=== PATIENT | male | born 1975 | race African-American/Black ===

== ENCOUNTER 2016-08-30 08:58 | Inpatient (IN) | payer MEDICAID, OTHER ==
[~2016-08-30] VITALS: Ht 157.5 cm; Wt 129.0 kg
[~2016-08-30 08:58] MED LIST: ALBU0.084; CYCL5TAB; HYDR-2601; IBUP800T24; NAPR-607
[2016-08-30 10:40] LABS: Basophils # (auto) 0 uL; Basophils % (auto) 0.2 % (0.0-2.0); Eosinophils # (auto) 0.2 uL; Eosinophils % (auto) 1.9 % (0.0-7.0); Hematocrit 45.6 % (41.0-53.0); Hemoglobin 14.4 g/dL (13.5-17.5); Lymphocytes # (auto) 1.5 uL; Lymphocytes % (auto) 14.6 % (10.0-50.0); Mean Corpuscular Hemoglobin 28.1 pg (28.0-32.0); Mean Corpuscular Hgb Conc. 31.7 g/dL (32.0-36.0); Mean Corpuscular Volume 88.7 fL (80.0-100.0); Mean Platelet Volume 7.3 fL (7.4-10.4); Monocytes % (auto) 9.9 % (0.0-12.0); Neutrophils # (auto) 7.3 uL; Neutrophils % (auto) 73.4 % (37.0-80.0); Platelet Count (auto) 269 10^3/uL (140-450); Red Cell Distribution Width 12.3 % (11.6-16.0)
[2016-08-30] MEDS ORDERED: SODIUM CHLORIDE 0.9% 1,000 ML IVB ONE (10:41)
[2016-08-30 10:55] LABS: BUN/Creatinine Ratio 11.4; Calcium 9.1 mg/dL (8.5-10.1); Potassium 4.2 mmol/L (3.5-5.1)
[2016-08-30 11:03] LABS: Urine Bilirubin Negative (Negative); Urine Blood 2+ /uL (Negative); Urine Color Yellow (Yellow); Urine Glucose Normal (Normal); Urine Ketone Negative (Negative); Urine Nitrite Negative (Negative); Urine RBC 16 /hpf (0 - 3); Urine Sperm PRESENT /hpf (None Seen); Urine Urobilinogen Normal (Negative)
[2016-08-30] MEDS ORDERED: PROMETHAZINE HCL 25 MG/ML 1ML IV ONE (13:45)
[2016-08-30] MEDS ORDERED: NALBUPHINE HCL 10 MG/1ml INJECTION IV ONE (13:45)
[2016-08-30] MEDS ORDERED: cefTRIAXone 1GM/50ML D5W 50 ML IV ONE ×2 (13:45→14:00)
[2016-08-30] MEDS ORDERED: PROMETHAZINE HCL 25 MG/ML 1ML IV PRN (14:00)
[2016-08-30] MEDS ORDERED: TEMAZEPAM 15 MG CAP PO PRN (14:00)
[2016-08-30] MEDS ORDERED: ACETAMINOPHEN 500 MG TAB PO PRN (14:00)
[2016-08-30] MEDS ORDERED: MORPHINE SULF INJ 2 MG/ML SYRINGE 1ML IV PRN (14:00)
[2016-08-30] MEDS ORDERED: LORazepam 0.5 MG TAB PO PRN (14:00)
[2016-08-30] MEDS ORDERED: DEXTROSE (50%) 50ML SYRG IV PRN (14:00)
[2016-08-30] MEDS ORDERED: NITROGLYCERIN 0.4 MG SL TAB SL PRN (14:00)
[2016-08-30] MEDS ORDERED: ENOXAPARIN SOD 40 MG/0.4 ML SYRINGE SC ONE (14:15)
[2016-08-30] MEDS: SODIUM CHLORIDE 0.9% 1,000 ML IV SCH (15:01)
[2016-08-30] MEDS: ACCU-CHEK COMFORT CURVE STRIP VI SCH ×2 (17:00→22:03)
[2016-08-30 17:10] LABS: Amylase 45 U/L (25-115)
[2016-08-30] MEDS: MORPHINE SULF INJ 2 MG/ML SYRINGE 1ML IV PRN (18:25)
[2016-08-30] MEDS: InsuLIN REG 1unit/0.01ml Soln (100units/ml) SC SCH ×2 (19:12→22:03)
[2016-08-30 20:00] VITALS: BP 132/61
[2016-08-30 21:08] VITALS: BP 132/61
[2016-08-30] MEDS: FAMOTIDINE 20 MG TAB PO SCH (21:42)
[2016-08-31] MEDS: SODIUM CHLORIDE 0.9% 1,000 ML IV SCH ×3 (01:28→14:05)
[2016-08-31 03:14] VITALS: BP 132/61
[2016-08-31] MEDS: MORPHINE SULF INJ 2 MG/ML SYRINGE 1ML IV PRN ×5 (04:16→21:41)
[2016-08-31 05:08] VITALS: BP 138/99
[2016-08-31 06:27] LABS: Basophils # (auto) 0 uL; Basophils % (auto) 0.3 % (0.0-2.0); Eosinophils # (auto) 0.3 uL; Eosinophils % (auto) 2.9 % (0.0-7.0); Hematocrit 44.7 % (41.0-53.0); Lymphocytes # (auto) 2.1 uL; Mean Corpuscular Hgb Conc. 31.3 g/dL (32.0-36.0); Mean Corpuscular Volume 89.3 fL (80.0-100.0); Mean Platelet Volume 7.7 fL (7.4-10.4); Monocytes % (auto) 10.8 % (0.0-12.0); Neutrophils # (auto) 5.7 uL; Platelet Count (auto) 237 10^3/uL (140-450); Red Cell Distribution Width 12.9 % (11.6-16.0)
[2016-08-31] MEDS: InsuLIN REG 1unit/0.01ml Soln (100units/ml) SC SCH ×4 (06:52→21:48)
[2016-08-31] MEDS: ACCU-CHEK COMFORT CURVE STRIP VI SCH ×4 (06:52→21:49)
[2016-08-31 07:00] VITALS: BP 155/103
[2016-08-31 07:08] LABS: Cholesterol 197 mg/dL (<200); HDL Cholesterol 34 mg/dL (40-59); LDL Cholesterol 141 mg/dL (<100); Triglycerides 178 mg/dL (<150)
[2016-08-31 08:06] LABS: Anion Gap 14 (5-15); Carbon Dioxide 22 mmol/L (21-32); Chloride 105 mmol/L (98-107); Potassium 5.2 mmol/L (3.5-5.1); Sodium 141 mmol/L (136-145)
[2016-08-31 08:39] LABS: Alkaline Phosphatase 51 U/L (45-117); Total Protein 7.4 g/dL (6.4-8.2)
[2016-08-31] MEDS: FAMOTIDINE 20 MG TAB PO SCH ×2 (08:39→21:41)
[2016-08-31] MEDS: cefTRIAXone 1GM/50ML D5W 50 ML IV SCH (08:40)
[2016-08-31] MEDS: ENOXAPARIN SOD 40 MG/0.4 ML SYRINGE SC SCH (08:44)
[2016-08-31 12:00] VITALS: BP 153/107
[2016-08-31 16:47] VITALS: BP 164/89
[2016-08-31] MEDS: HYDROcodone-ACET 5/325MG TAB PO PRN ×2 (20:30→21:52)
[2016-08-31 22:00] VITALS: BP 152/99
[2016-09-01] MEDS: MORPHINE SULF INJ 2 MG/ML SYRINGE 1ML IV PRN (03:17)
[2016-09-01 05:51] VITALS: BP 148/99
[2016-09-01] MEDS: SODIUM CHLORIDE 0.9% 1,000 ML IV SCH (06:10)
[2016-09-01] MEDS: InsuLIN REG 1unit/0.01ml Soln (100units/ml) SC SCH ×2 (06:10→11:30)
[2016-09-01] MEDS: ACCU-CHEK COMFORT CURVE STRIP VI SCH ×2 (06:10→11:30)
[2016-09-01 07:00] VITALS: BP 151/97
[2016-09-01 07:27] LABS: Potassium 4.2 mmol/L (3.5-5.1)
[2016-09-01 07:36] LABS: BUN/Creatinine Ratio 9.9; Calcium 8.2 mg/dL (8.5-10.1)
[2016-09-01 07:50] VITALS: BP 151/97
[2016-09-01] MEDS: HYDROcodone-ACET 5/325MG TAB PO PRN (08:04)
[2016-09-01] MEDS: cefTRIAXone 1GM/50ML D5W 50 ML IV SCH (08:05)
[2016-09-01] MEDS ORDERED: INFLUENZA QUAD 2016-2017 0.5 ML SYRG IM ONE (08:15)
[2016-09-01] MEDS: FAMOTIDINE 20 MG TAB PO SCH (09:31)
[2016-09-01] MEDS: ENOXAPARIN SOD 40 MG/0.4 ML SYRINGE SC SCH (09:31)
[2016-09-01] MEDS ORDERED: CIPR-217 PO (11:18)
[2016-09-01 12:00] VITALS: BP 151/96
[2016-09-01 12:52] VITALS: BP 151/96
== END 2016-09-01 14:10 | disposition home or self-care (01) | DRG 463 ==
LOC: ER 08:59 → TELE 09:00 → TELE-E-ADS 16:03 → TELE-EAST 17:40
PROVIDERS: ADMIT Internal Medicine; ATTEND Internal Medicine
PROC: 5A09457 Assistance with Respiratory Ventilation, 24-96 Consecutive Hours, Continuous Positive Airway Pressure (ICD-10-PCS; principal; 2016-08-30)
DX: N39.0 Urinary tract infection, site not specified (principal); N17.0 Acute kidney failure with tubular necrosis; I50.9 Heart failure, unspecified; E11.21 Type 2 diabetes mellitus with diabetic nephropathy; I13.0 Hypertensive heart and chronic kidney disease with heart failure and stage 1 through stage 4 chronic kidney disease, or unspecified chronic kidney disease; E11.65 Type 2 diabetes mellitus with hyperglycemia; E11.22 Type 2 diabetes mellitus with diabetic chronic kidney disease; N13.30 Unspecified hydronephrosis; E66.01 Morbid (severe) obesity due to excess calories; K59.00 Constipation, unspecified; F32.9 Major depressive disorder, single episode, unspecified; E78.5 Hyperlipidemia, unspecified; G47.30 Sleep apnea, unspecified; N18.9 Chronic kidney disease, unspecified; M54.9 Dorsalgia, unspecified; F17.210 Nicotine dependence, cigarettes, uncomplicated; J44.9 Chronic obstructive pulmonary disease, unspecified; Z68.43 Body mass index [BMI] 50.0-59.9, adult; Z83.3 Family history of diabetes mellitus; Z83.6 Family history of other diseases of the respiratory system; Z79.899 Other long term (current) drug therapy; Z23 Encounter for immunization
CPT/HCPCS: 36415; 71020; 74176; 80048; 80053; 80061; 81001; 82150; 82962; 83036; 83690; 83735; 85025; 85652; 87086; 93306; 94660; 96361; 96365; 96372; 96375; J0696; J1815

== ENCOUNTER 2016-09-02 09:02 | Emergency (ER) | payer MEDICAID ==
[~2016-09-02] VITALS: Ht 157.5 cm; Wt 127.0 kg
[~2016-09-02 09:02] MED LIST changes: +CIPR-217 PO; -IBUP800T24; -NAPR-607
[2016-09-02 09:13] VITALS: BP 198/106
[2016-09-02] MEDS ORDERED: cefTRIAXone SOD 1,000 MG VL IM ONE (09:45)
[2016-09-02] MEDS ORDERED: KETOROLAC TROMETH 60MG/2ML VIAL IM ONE (09:45)
== END 2016-09-02 10:11 | disposition home or self-care (01) ==
LOC: ER 09:05 → TELE 09:06 → UNDOADMIN 09:06 → ER 10:11 → UNDODISIN 10:12 → ER 10:13
DX: N39.0 Urinary tract infection, site not specified (principal); K58.9 Irritable bowel syndrome, unspecified; F17.210 Nicotine dependence, cigarettes, uncomplicated; F12.10 Cannabis abuse, uncomplicated
CPT/HCPCS: 81002; 96372; 99284; J0696; J1885

== ENCOUNTER 2016-09-19 15:22 | Inpatient (IN) | payer MEDICAID ==
[~2016-09-19] VITALS: Ht 182.9 cm; Wt 120.1 kg
[2016-09-19 16:36] LABS: Basophils # (auto) 0.1 uL; Basophils % (auto) 0.5 % (0.0-2.0); Eosinophils # (auto) 0.2 uL; Eosinophils % (auto) 2.6 % (0.0-7.0); Hemoglobin 13.6 g/dL (13.5-17.5); Lymphocytes # (auto) 2.3 uL; Lymphocytes % (auto) 23.9 % (10.0-50.0); Mean Corpuscular Hgb Conc. 33.9 g/dL (32.0-36.0); Mean Corpuscular Volume 85.8 fL (80.0-100.0); Mean Platelet Volume 7.4 fL (7.4-10.4); Monocytes # (auto) 0.8 uL; Monocytes % (auto) 8.5 % (0.0-12.0); Neutrophils # (auto) 6.2 uL; Neutrophils % (auto) 64.5 % (37.0-80.0); Platelet Count (auto) 301 10^3/uL (140-450); Red Cell Distribution Width 12.5 % (11.6-16.0); White Blood Cell 9.6 10^3/uL (4.4-10.8)
[2016-09-19] MEDS ORDERED: KETOROLAC TROMETH 30 MG/ML 1ML VIAL IV ONE (16:45)
[2016-09-19 16:54] LABS: Albumin 3.2 g/dL (3.4-5.0); Calcium 8.3 mg/dL (8.5-10.1); Magnesium 1.9 mg/dL (1.6-2.6); Potassium 4.6 mmol/L (3.5-5.1)
[2016-09-19 16:57] LABS: Bilirubin, Total 0.3 mg/dL (0.2-1.0); Total Protein 7.9 g/dL (6.4-8.2)
[2016-09-19 16:59] LABS: INR 1.11 (0.9-1.15); Partial Thromboplastin Time 27.1 sec (22.64-33.71); Prothrombin Time 11.4 sec (9.37-12.3)
[2016-09-19 17:18] LABS: Urine Bilirubin Negative (Negative); Urine Color Yellow (Yellow); Urine Glucose Normal (Normal); Urine Ketone Negative (Negative); Urine Nitrite Negative (Negative); Urine RBC 90 /hpf (0 - 3); Urine Urobilinogen Normal (Negative)
[2016-09-19 17:28] LABS: Urine Blood 2+ /uL (Negative)
[2016-09-19] MEDS ORDERED: cefTRIAXone 1GM/50ML D5W 50 ML IV ONE ×2 (18:00→21:00)
[2016-09-19] MEDS ORDERED: ONDANSETRON HCL 4 MG/2 ML VIAL IV PRN (21:00)
[2016-09-19] MEDS ORDERED: ACETAMINOPHEN 325 MG TAB PO PRN ×2 (21:00→21:09)
[2016-09-19] MEDS ORDERED: HYDROcodone-ACET 10/325MG TAB PO PRN (21:00)
[2016-09-19] MEDS ORDERED: ONDANSETRON HCL 4 MG/2 ML VIAL ONE (21:03)
[2016-09-19] MEDS ORDERED: HYDROmorphone HCL 2 MG/ML VL ONE (21:05)
[2016-09-19 21:15] VITALS: BP 148/93
[2016-09-19] MEDS: HYDROmorphone HCL 2 MG/ML VL IV PRN (21:16)
[2016-09-19] MEDS ORDERED: DEXTROSE (50%) 50ML SYRG IV PRN (21:30)
[2016-09-19 22:00] VITALS: BP 149/93
[2016-09-19] MEDS ORDERED: TAMSULOSIN HYDROCHLORIDE 0.4 MG CAP PO SCH (22:00)
[2016-09-19] MEDS: InsuLIN REG 1unit/0.01ml Soln (100units/ml) SC SCH (22:00)
[2016-09-19] MEDS: ACCU-CHEK COMFORT CURVE STRIP VI SCH (22:11)
[2016-09-19] MEDS: SOD CHL 0.45% 1,000 ML IV PRN (22:55)
[2016-09-20] MEDS ORDERED: SIMV10TA84 PO (00:45)
[2016-09-20] MEDS ORDERED: METF-316 PO (00:46)
[2016-09-20] MEDS: HYDROmorphone HCL 2 MG/ML VL IV PRN ×7 (01:46→23:19)
[2016-09-20 05:00] VITALS: BP 115/66
[2016-09-20 06:29] LABS: Basophils # (auto) 0 uL; Basophils % (auto) 0.4 % (0.0-2.0); Eosinophils # (auto) 0.3 uL; Eosinophils % (auto) 4.5 % (0.0-7.0); Hematocrit 35.9 % (41.0-53.0); Lymphocytes # (auto) 2.7 uL; Lymphocytes % (auto) 37.8 % (10.0-50.0); Mean Corpuscular Hemoglobin 28.9 pg (28.0-32.0); Mean Corpuscular Hgb Conc. 33.5 g/dL (32.0-36.0); Mean Corpuscular Volume 86.3 fL (80.0-100.0); Mean Platelet Volume 7.1 fL (7.4-10.4); Monocytes # (auto) 0.7 uL; Monocytes % (auto) 9.6 % (0.0-12.0); Neutrophils # (auto) 3.4 uL; Neutrophils % (auto) 47.7 % (37.0-80.0); Platelet Count (auto) 264 10^3/uL (140-450); Red Cell Distribution Width 12.7 % (11.6-16.0); White Blood Cell 7.1 10^3/uL (4.4-10.8)
[2016-09-20] MEDS: ACCU-CHEK COMFORT CURVE STRIP VI SCH ×4 (06:48→21:43)
[2016-09-20] MEDS: InsuLIN REG 1unit/0.01ml Soln (100units/ml) SC SCH ×4 (06:48→21:45)
[2016-09-20 07:01] LABS: Albumin 2.8 g/dL (3.4-5.0); BUN/Creatinine Ratio 14.9; Bilirubin, Total 0.4 mg/dL (0.2-1.0); Calcium 8.2 mg/dL (8.5-10.1); Phosphorus 5.1 mg/dL (2.5-4.90); Potassium 4.8 mmol/L (3.5-5.1)
[2016-09-20 08:00] VITALS: BP 107/78
[2016-09-20] MEDS: PANTOPRAZOLE 40 MG TAB PO SCH (08:38)
[2016-09-20 09:00] VITALS: BP 107/78
[2016-09-20 13:00] VITALS: BP 112/88
[2016-09-20 17:05] VITALS: BP 111/72
[2016-09-20 21:30] VITALS: BP 125/76
[2016-09-20] MEDS: TAMSULOSIN HYDROCHLORIDE 0.4 MG CAP PO SCH (21:42)
[2016-09-21] MEDS: HYDROmorphone HCL 2 MG/ML VL IV PRN ×4 (04:36→21:50)
[2016-09-21 05:00] VITALS: BP 121/86
[2016-09-21 06:01] LABS: Basophils # (auto) 0 uL; Basophils % (auto) 0.4 % (0.0-2.0); Eosinophils # (auto) 0.4 uL; Eosinophils % (auto) 6.6 % (0.0-7.0); Hematocrit 35.4 % (41.0-53.0); Lymphocytes % (auto) 36.4 % (10.0-50.0); Mean Corpuscular Hgb Conc. 33.8 g/dL (32.0-36.0); Mean Corpuscular Volume 85.9 fL (80.0-100.0); Mean Platelet Volume 7.3 fL (7.4-10.4); Monocytes # (auto) 0.6 uL; Monocytes % (auto) 10.1 % (0.0-12.0); Neutrophils # (auto) 2.6 uL; Neutrophils % (auto) 46.5 % (37.0-80.0); Platelet Count (auto) 274 10^3/uL (140-450); Red Cell Distribution Width 12.8 % (11.6-16.0); White Blood Cell 5.6 10^3/uL (4.4-10.8)
[2016-09-21] MEDS: InsuLIN REG 1unit/0.01ml Soln (100units/ml) SC SCH ×4 (06:34→22:11)
[2016-09-21] MEDS: ACCU-CHEK COMFORT CURVE STRIP VI SCH ×4 (06:34→22:10)
[2016-09-21 06:49] LABS: BUN/Creatinine Ratio 14.9; Bilirubin, Total 0.3 mg/dL (0.2-1.0); Calcium 8.4 mg/dL (8.5-10.1); Magnesium 1.8 mg/dL (1.6-2.6); Potassium 4.6 mmol/L (3.5-5.1); Total Protein 7.2 g/dL (6.4-8.2)
[2016-09-21 08:00] VITALS: BP 115/78
[2016-09-21] MEDS ORDERED: ceFAZolin 1GM/50ML D5W 50 ML IV ONE (09:06)
[2016-09-21 09:34] VITALS: BP 115/78
[2016-09-21] MEDS: PANTOPRAZOLE 40 MG TAB PO SCH (10:00)
[2016-09-21 11:07] LABS: PSA Free 0.2 ng/mL; Prostate Specific Antigen 1.3 ng/mL (0.0-4.0)
[2016-09-21] MEDS ORDERED: fentaNYL CITRATE 100 MCG/2 ML VL ONE (11:08)
[2016-09-21] MEDS ORDERED: IOHEXOL 300 MG/ML 100ML BOTTLE IJ ONE (11:09)
[2016-09-21] MEDS ORDERED: MIDAZOLAM HCL 1MG/1ML-2 ML VIAL ONE (11:18)
[2016-09-21] MEDS ORDERED: KETAMINE HCL 50 MG/ML 10ML VIAL ONE (11:19)
[2016-09-21] MEDS ORDERED: LABETALOL HCL 5 MG/ML 4ML SYRINGE IV PRN (12:00)
[2016-09-21] MEDS ORDERED: ONDANSETRON HCL 4 MG/2 ML VIAL IV ONE (12:00)
[2016-09-21 17:00] VITALS: BP 119/65
[2016-09-21] MEDS ORDERED: cloNIDine HCL 0.1 MG TAB PO PRN (17:15)
[2016-09-21] MEDS: SOD CHL 0.45% 1,000 ML IV PRN (19:49)
[2016-09-21 20:00] VITALS: BP 113/61
[2016-09-21] MEDS: TAMSULOSIN HYDROCHLORIDE 0.4 MG CAP PO SCH (21:49)
[2016-09-21 22:00] VITALS: BP_SYST 113; BP_SYST 143; BP_DIAS 61; BP_DIAS 62
[2016-09-22] VITALS (8 sets, daily range): BP systolic 108–150; BP diastolic 57–84
[2016-09-22] MEDS: ALBUTEROL SULF 2.5 MG/0.5ML(0.5%) NEB SOLN NEB PRN ×2 (00:26→07:27)
[2016-09-22] MEDS: HYDROmorphone HCL 2 MG/ML VL IV PRN ×4 (01:04→22:22)
[2016-09-22] MEDS: SOD CHL 0.45% 1,000 ML IV PRN (05:58)
[2016-09-22] MEDS: InsuLIN REG 1unit/0.01ml Soln (100units/ml) SC SCH ×4 (07:00→22:00)
[2016-09-22] MEDS: ACCU-CHEK COMFORT CURVE STRIP VI SCH ×4 (07:01→22:22)
[2016-09-22 08:17] LABS: Basophils # (auto) 0 uL; Basophils % (auto) 0.5 % (0.0-2.0); Eosinophils # (auto) 0.1 uL; Eosinophils % (auto) 1.4 % (0.0-7.0); Hematocrit 31.8 % (41.0-53.0); Hemoglobin 10.8 g/dL (13.5-17.5); Lymphocytes # (auto) 1.9 uL; Lymphocytes % (auto) 24.6 % (10.0-50.0); Mean Corpuscular Hemoglobin 29.6 pg (28.0-32.0); Mean Corpuscular Volume 87.1 fL (80.0-100.0); Mean Platelet Volume 7.9 fL (7.4-10.4); Monocytes # (auto) 0.5 uL; Monocytes % (auto) 6.3 % (0.0-12.0); Neutrophils # (auto) 5.2 uL; Neutrophils % (auto) 67.2 % (37.0-80.0); Platelet Count (auto) 270 10^3/uL (140-450); Red Cell Distribution Width 12.4 % (11.6-16.0); SUSPECT VIEW TRANSMISSION; White Blood Cell 7.7 10^3/uL (4.4-10.8)
[2016-09-22 08:32] LABS: BUN/Creatinine Ratio 17.2; Calcium 8.6 mg/dL (8.5-10.1); Magnesium 1.8 mg/dL (1.6-2.6); Potassium 4.7 mmol/L (3.5-5.1)
[2016-09-22] MEDS: PANTOPRAZOLE 40 MG TAB PO SCH (10:09)
[2016-09-22] MEDS ORDERED: LIDOCAINE 2% JELLY 11ml (GLYDO) ONE (11:32)
[2016-09-22] MEDS ORDERED: IOHEXOL 300 MG/ML 100ML BOTTLE IJ ONE (11:32)
[2016-09-22] MEDS ORDERED: ceFAZolin 1GM/50ML D5W 50 ML IV ONE (13:00)
[2016-09-22] MEDS ORDERED: SUCCINYLCHOLINE CHLORIDE 20 MG/ML 10ML VIAL IV ONE (13:21)
[2016-09-22] MEDS ORDERED: MIDAZOLAM HCL 1MG/1ML-2 ML VIAL ONE (13:37)
[2016-09-22] MEDS ORDERED: fentaNYL CITRATE 100 MCG/2 ML VL ONE (13:37)
[2016-09-22] MEDS ORDERED: DEXAMETHASONE SOD PHOS 10MG/1ML VIAL INJ ONE (14:05)
[2016-09-22] MEDS ORDERED: METOCLOPRAMIDE HCL 5MG/ml INJ 2ml VIAL ONE (15:44)
[2016-09-22] MEDS: TAMSULOSIN HYDROCHLORIDE 0.4 MG CAP PO SCH (22:15)
[2016-09-23] VITALS (7 sets, daily range): BP systolic 131–156; BP diastolic 76–100
[2016-09-23] MEDS: ALBUTEROL SULF 2.5 MG/0.5ML(0.5%) NEB SOLN NEB PRN (02:12)
[2016-09-23] MEDS: HYDROmorphone HCL 2 MG/ML VL IV PRN ×6 (04:41→22:25)
[2016-09-23] MEDS: SOD CHL 0.45% 1,000 ML IV PRN (04:41)
[2016-09-23] MEDS: InsuLIN REG 1unit/0.01ml Soln (100units/ml) SC SCH ×4 (06:22→22:00)
[2016-09-23] MEDS: ACCU-CHEK COMFORT CURVE STRIP VI SCH ×4 (06:22→22:20)
[2016-09-23] MEDS: PANTOPRAZOLE 40 MG TAB PO SCH (11:06)
[2016-09-23] MEDS ORDERED: cefTRIAXone 1GM/50ML D5W 50 ML IV ONE (13:30)
[2016-09-23] MEDS: TAMSULOSIN HYDROCHLORIDE 0.4 MG CAP PO SCH (22:20)
[2016-09-24] MEDS: HYDROmorphone HCL 2 MG/ML VL IV PRN ×5 (01:37→19:52)
[2016-09-24 04:42] VITALS: BP 143/78
[2016-09-24] MEDS: InsuLIN REG 1unit/0.01ml Soln (100units/ml) SC SCH ×5 (07:00→22:00)
[2016-09-24 07:07] LABS: Basophils # (auto) 0 uL; Basophils % (auto) 0.3 % (0.0-2.0); Eosinophils # (auto) 0.3 uL; Eosinophils % (auto) 3.1 % (0.0-7.0); Hematocrit 39.3 % (41.0-53.0); Hemoglobin 12.9 g/dL (13.5-17.5); Lymphocytes # (auto) 1.8 uL; Lymphocytes % (auto) 22.4 % (10.0-50.0); Mean Corpuscular Hemoglobin 28.3 pg (28.0-32.0); Mean Corpuscular Hgb Conc. 32.9 g/dL (32.0-36.0); Mean Corpuscular Volume 86.1 fL (80.0-100.0); Mean Platelet Volume 7.2 fL (7.4-10.4); Monocytes # (auto) 0.8 uL; Monocytes % (auto) 9.8 % (0.0-12.0); Neutrophils # (auto) 5.2 uL; Neutrophils % (auto) 64.4 % (37.0-80.0); Platelet Count (auto) 277 10^3/uL (140-450); Red Cell Distribution Width 12.6 % (11.6-16.0); White Blood Cell 8.1 10^3/uL (4.4-10.8)
[2016-09-24] MEDS: ACCU-CHEK COMFORT CURVE STRIP VI SCH ×4 (07:10→22:10)
[2016-09-24 07:16] LABS: INR 1.11 (0.9-1.15); Prothrombin Time 11.4 sec (9.37-12.3)
[2016-09-24 07:39] LABS: Calcium 8.7 mg/dL (8.5-10.1); Magnesium 1.7 mg/dL (1.6-2.6); Potassium 4.9 mmol/L (3.5-5.1)
[2016-09-24 07:56] LABS: BUN/Creatinine Ratio 13.3
[2016-09-24 08:00] VITALS: BP 137/92
[2016-09-24 09:00] VITALS: BP 137/92
[2016-09-24] MEDS: cefTRIAXone 1GM/50ML D5W 50 ML IV SCH (09:26)
[2016-09-24] MEDS: PANTOPRAZOLE 40 MG TAB PO SCH (09:47)
[2016-09-24 13:00] VITALS: BP 144/88
[2016-09-24 17:12] VITALS: BP 134/91
[2016-09-24] MEDS: TAMSULOSIN HYDROCHLORIDE 0.4 MG CAP PO SCH (21:51)
[2016-09-24 22:00] VITALS: BP 138/87
[2016-09-25] MEDS: HYDROmorphone HCL 2 MG/ML VL IV PRN ×3 (03:40→10:42)
[2016-09-25 05:00] VITALS: BP 114/67
[2016-09-25] MEDS: ACCU-CHEK COMFORT CURVE STRIP VI SCH ×3 (06:10→17:00)
[2016-09-25] MEDS: InsuLIN REG 1unit/0.01ml Soln (100units/ml) SC SCH ×3 (06:10→17:00)
[2016-09-25] MEDS: ALBUTEROL SULF 2.5 MG/0.5ML(0.5%) NEB SOLN NEB PRN (06:36)
[2016-09-25 06:42] LABS: Basophils # (auto) 0.1 uL; Basophils % (auto) 1.1 % (0.0-2.0); Eosinophils # (auto) 0.2 uL; Eosinophils % (auto) 2.7 % (0.0-7.0); Hematocrit 37.2 % (41.0-53.0); Hemoglobin 12.4 g/dL (13.5-17.5); Lymphocytes # (auto) 2.4 uL; Lymphocytes % (auto) 34.8 % (10.0-50.0); Mean Corpuscular Hemoglobin 28.5 pg (28.0-32.0); Mean Corpuscular Hgb Conc. 33.3 g/dL (32.0-36.0); Mean Corpuscular Volume 85.4 fL (80.0-100.0); Monocytes # (auto) 0.6 uL; Monocytes % (auto) 8.6 % (0.0-12.0); Neutrophils # (auto) 3.6 uL; Neutrophils % (auto) 52.8 % (37.0-80.0); Platelet Count (auto) 243 10^3/uL (140-450); Red Cell Distribution Width 12.7 % (11.6-16.0); White Blood Cell 6.8 10^3/uL (4.4-10.8)
[2016-09-25 06:56] LABS: Prothrombin Time 11.9 sec (9.37-12.3)
[2016-09-25 07:05] LABS: INR 1.16 (0.9-1.15)
[2016-09-25 07:21] LABS: BUN/Creatinine Ratio 15.7; Calcium 8.7 mg/dL (8.5-10.1); Magnesium 1.7 mg/dL (1.6-2.6); Potassium 4.5 mmol/L (3.5-5.1)
[2016-09-25 08:00] VITALS: BP 132/66
[2016-09-25 09:00] VITALS: BP 142/86
[2016-09-25] MEDS: cefTRIAXone 1GM/50ML D5W 50 ML IV SCH (10:41)
[2016-09-25] MEDS: PANTOPRAZOLE 40 MG TAB PO SCH (10:41)
[2016-09-25 13:00] VITALS: BP 124/77
[2016-09-25 14:42] VITALS: BP 139/74
[2016-09-25 14:54] VITALS: BP 139/74
== END 2016-09-25 17:06 | disposition home or self-care (01) | DRG 501 ==
LOC: ER 15:22 → EDBD 15:22 → OVERFLOW 15:23 → CENTRAL 21:51
PROVIDERS: ADMIT Internal Medicine; ATTEND Internal Medicine Pulmonary Disease
PROC: 5A09557 Assistance with Respiratory Ventilation, Greater than 96 Consecutive Hours, Continuous Positive Airway Pressure (ICD-10-PCS; principal; 2016-09-19)
DX: N40.1 Benign prostatic hyperplasia with lower urinary tract symptoms (principal); E11.22 Type 2 diabetes mellitus with diabetic chronic kidney disease; N17.9 Acute kidney failure, unspecified; N12 Tubulo-interstitial nephritis, not specified as acute or chronic; N18.3 Chronic kidney disease, stage 3 (moderate); E11.65 Type 2 diabetes mellitus with hyperglycemia; E66.01 Morbid (severe) obesity due to excess calories; N13.6 Pyonephrosis; N41.9 Inflammatory disease of prostate, unspecified; N28.9 Disorder of kidney and ureter, unspecified; N30.90 Cystitis, unspecified without hematuria; E78.5 Hyperlipidemia, unspecified; F17.210 Nicotine dependence, cigarettes, uncomplicated; F41.0 Panic disorder [episodic paroxysmal anxiety]; G47.33 Obstructive sleep apnea (adult) (pediatric); I12.9 Hypertensive chronic kidney disease with stage 1 through stage 4 chronic kidney disease, or unspecified chronic kidney disease; J45.30 Mild persistent asthma, uncomplicated; Z82.49 Family history of ischemic heart disease and other diseases of the circulatory system; Z83.3 Family history of diabetes mellitus; Z87.440 Personal history of urinary (tract) infections; Z79.84 Long term (current) use of oral hypoglycemic drugs; Z68.39 Body mass index [BMI] 39.0-39.9, adult; N13.9 Obstructive and reflux uropathy, unspecified; Z81.1 Family history of alcohol abuse and dependence; Z84.1 Family history of disorders of kidney and ureter; D64.9 Anemia, unspecified; Z71.89 Other specified counseling; Z53.8 Procedure and treatment not carried out for other reasons; I25.10 Atherosclerotic heart disease of native coronary artery without angina pectoris; F12.90 Cannabis use, unspecified, uncomplicated; R33.9 Retention of urine, unspecified
CPT/HCPCS: 36415; 51702; 71010; 74000; 74176; 80048; 80053; 80061; 81001; 82150; 82962; 83036; 83690; 83735; 84100; 84154; 84443; 85025; 85610; 85730; 87081; 87086; 93005; 94640; 94660; 94761; 96361; 96374; 96375; J0330; J0690; J0696; J1100; J1815; J1885; J2250; J2405

== ENCOUNTER 2016-11-14 15:29 | Emergency (ER) | payer MEDICAID ==
[~2016-11-14] VITALS: Ht 177.8 cm; Wt 117.9 kg
[~2016-11-14 15:29] MED LIST changes: -CIPR-217 PO; +METF-316 PO; +SIMV10TA84 PO
[2016-11-14 16:23] LABS: Urine RBC None Seen /hpf (0 - 3)
[2016-11-14 16:36] LABS: Basophils # (auto) 0 uL; Basophils % (auto) 0.3 % (0.0-2.0); Eosinophils # (auto) 0.5 uL; Eosinophils % (auto) 5.4 % (0.0-7.0); Hematocrit 39.7 % (41.0-53.0); Hemoglobin 13.1 g/dL (13.5-17.5); Lymphocytes # (auto) 2.5 uL; Lymphocytes % (auto) 30.2 % (10.0-50.0); Mean Corpuscular Hemoglobin 29.4 pg (28.0-32.0); Mean Corpuscular Volume 89.2 fL (80.0-100.0); Mean Platelet Volume 7.7 fL (7.4-10.4); Monocytes # (auto) 0.6 uL; Monocytes % (auto) 6.9 % (0.0-12.0); Neutrophils # (auto) 4.8 uL; Neutrophils % (auto) 57.2 % (37.0-80.0); Platelet Count (auto) 260 10^3/uL (140-450); Red Cell Distribution Width 15.4 % (11.6-16.0); White Blood Cell 8.4 10^3/uL (4.4-10.8)
[2016-11-14 17:05] LABS: Urine Bilirubin Negative (Negative); Urine Blood Negative /uL (Negative); Urine Color Yellow (Yellow); Urine Glucose Normal (Normal); Urine Ketone Negative (Negative); Urine Nitrite Negative (Negative); Urine Squamous Epithelial Cell FEW /hpf (<5); Urine Urobilinogen Normal (Negative)
[2016-11-14 17:06] LABS: Albumin 3.3 g/dL (3.4-5.0); BUN/Creatinine Ratio 9.5; Bilirubin, Total 0.2 mg/dL (0.2-1.0); Calcium 8.8 mg/dL (8.5-10.1); Potassium 3.9 mmol/L (3.5-5.1); Total Protein 7.6 g/dL (6.4-8.2)
[2016-11-15] MEDS ORDERED: KETOROLAC TROMETH 60MG/2ML VIAL IM ONE
[2016-11-15] MEDS ORDERED: IOHEXOL 300 MG/ML 100ML BOTTLE IJ ONE
[2016-11-15] MEDS ORDERED: KETOROLAC TROMETH 30 MG/ML 1ML VIAL IV ONE (01:00)
[2016-11-15 02:44] VITALS: BP 126/74
== END 2016-11-15 02:53 | disposition home or self-care (01) ==
LOC: ER 15:48
DX: N28.89 Other specified disorders of kidney and ureter (principal); E11.9 Type 2 diabetes mellitus without complications; I10 Essential (primary) hypertension; F12.10 Cannabis abuse, uncomplicated; F17.210 Nicotine dependence, cigarettes, uncomplicated
CPT/HCPCS: 36415; 74177; 80053; 81001; 85025; 96374; 99285; J1885; Q9967